=== PATIENT | male | born 2000 | race African-American/Black ===

== ENCOUNTER 2023-09-04 05:42 | Emergency (ER) | payer OTHER ==
[~2023-09-04] VITALS: Ht 167.6 cm; Wt 104.5 kg
[2023-09-04 05:46] VITALS: TEMP 99.7
[2023-09-04] MEDS ORDERED: Albuterol 90 MCG/PUFF 8 GM MDI IH ONE (06:00)
[2023-09-04] MEDS ORDERED: predniSONE 20 MG TAB PO ONE (06:15)
[2023-09-04] MEDS ORDERED: PREDNISONE20 MG PO (06:51)
[2023-09-04 07:41] VITALS: BP 151/97; PULSE 101
== END 2023-09-04 07:46 | disposition home or self-care (01) ==
LOC: COL.ER 05:42
DX: J45.901 Unspecified asthma with (acute) exacerbation (principal); J06.9 Acute upper respiratory infection, unspecified
CPT/HCPCS: J7512